=== PATIENT | female | born 1990 | race Caucasian/White ===

== ENCOUNTER 2025-03-28 16:09 | Outpatient (CLI) | payer BC, SELFPAY ==
--- NOTE | 2025-03-28 14:15 | USR_ITS ---
PROCEDURE INFORMATION: Exam: US Pelvis, Complete, Non-Obstetric Exam date and time: 03/28/2025 4:23 PM Age: 35 years old Clinical indication: Menstruation abnormalities; Excessive menstruation; Additional info: N92.0 - excessive and frequent menstruation with regular . . . Additional history: 9 months. Polymenorrhagia. LMP March 06. TECHNIQUE: Imaging protocol: Transabdominal pelvic nonobstetric ultrasound. Complete exam. Real time ultrasound with image documentation. Total images: 269 COMPARISON: No relevant prior studies available. FINDINGS: Uterus: Uterus anteverted. Myometrium mildly heterogeneous. Normal uterine serosal contour and uterine size. Endometrial echo complex is mildly heterogeneous demonstrating trilaminar morphology measuring 1.3 cm thickness. Right ovary/adnexa: Right ovary measures 9.8 cm volume, 2.9 cm maximum transverse dimension, and demonstrates multiple subcentimeter follicles. Right ovary normal arterial inflow, venous outflow and Doppler waveforms. Multiple small subcentimeter uniform follicles. Left ovary/adnexa: Left ovary measures 18.0 mL volume, 3.8 cm maximum transverse dimension, and demonstrates multiple subcentimeter follicles. Left ovary normal arterial inflow, venous outflow and Doppler waveforms. Multiple small subcentimeter uniform follicles. Intraperitoneal space: No free pelvic fluid. Urinary bladder: No abnormality identified to the extent bladder is partially visualized. US/US pelv w/transvag [id number] IMPRESSION: 1. Uterus of normal-size and contour demonstrating mildly heterogeneous myometrial echotexture. 2. Endometrial echo complex is mildly heterogeneous demonstrating trilaminar morphology measuring 1.3 cm thickness. 3. Bilateral multifollicular ovaries. 4. Blood flow confirmed to both ovaries, no torsion.
== END 2025-03-28 16:10 | disposition home or self-care (01) ==
LOC: RAD 16:11
PROVIDERS: Family Provider Nurse Practitioner; PCP Nurse Practitioner; Visit Provider Nurse Practitioner
DX: N92.0 Excessive and frequent menstruation with regular cycle (principal)
CPT/HCPCS: 76830; 76856